=== PATIENT | male | born 1980 | race Two or more races ===

== ENCOUNTER 2016-05-17 13:45 | Emergency (ER) | payer MEDICAID ==
[~2016-05-17 13:45] MED LIST: CYCLOBENZAPRINE5 M1 PO; FLOMAX0.4 M1 PO; LOPERAMIDE2 M2 PO; NO HOME MEDICATION XX; NORCO 5/3251 TAB PO; ZOFRAN4 M2 PO
[2016-05-17] MEDS ORDERED: IBUPROFEN600 M1 PO (16:11)
[2016-05-17 16:29] LABS: URINE BILIRUBIN NEGATIVE (NEG); URINE BLOOD NEGATIVE (NEG); URINE GLUCOSE (UA) NEGATIVE (NEG); URINE KETONE NEGATIVE (NEG); URINE LEUKOCYTE ESTERASE NEGATIVE (NEG); URINE NITRITE NEGATIVE (NEG); URINE PROTEIN NEGATIVE (NEG); URINE SPECIFIC GRAVITY 1.025 (1.003-1.030)
[2016-05-17 16:30] LABS: URINE APPEARANCE CLEAR; URINE COLOR YELLOW
== END 2016-05-17 17:08 ==
LOC: EDMED 13:45
PROVIDERS: Emergency Medicine
DX: S39.012A Strain of muscle, fascia and tendon of lower back, initial encounter (principal); X58.XXXA Exposure to other specified factors, initial encounter; Y93.23 Activity, snow (alpine) (downhill) skiing, snowboarding, sledding, tobogganing and snow tubing